=== PATIENT | female | born 1940 | race Caucasian/White ===

== ENCOUNTER 2017-02-28 22:09 | Inpatient (IN) | payer MEDICARE, MEDICAID ==
[~2017-02-28] VITALS: Ht 157.5 cm; Wt 70.7 kg
[~2017-02-28 22:09] MED LIST: ACET325T14 PO; ALBU2.5V NPPB; ALBU8.5H8 IH; ALPR0.254 PO; AMIO200T42 PO; AMLO10TA2 PO; APIX5TAB PO; ASPI-496 PO; ASPI325T17 PO; BUME0.5T PO; BUME1TAB21 PO; CLON0.3T47 PO; DIGO125T PO; DIGO250T PO; DOCU-131 PO; DOXY100T PO; FENO145T32 PO; FLUT16SP NAS; FLUT1BLS INH; GUAI5SYR PO; INSU100I18 SQ-INSULIN; INSU100I28 SQ-INSULIN; INSU100V12 SQ; INSU100V13 SQ; LISI40TA PO; LOPE1LIQ6 PO; LOSA50TA2 PO; METF500T4 PO; METO2.5T PO; METO25TA91 PO; MULT-6 PO; OMEP-110 PO; POTA20TA14 PO; PRED5TAB PO
[2017-02-28] MEDS ORDERED: VANCOMYCIN PER PHARMACY IV ONE (22:30)
[2017-02-28 22:39] LABS: BASOPHILS # (AUTO) 0.01 x10^3/uL (0-0.1); BASOPHILS % (AUTO) 0 % (0-1); EOSINOPHILS # (AUTO) 0.14 x10^3/uL (0-0.4); EOSINOPHILS % (AUTO) 2 % (1-7); LYMPHOCYTES # (AUTO) 2.47 x10^3/uL (1-3.4); LYMPHOCYTES % (AUTO) 35 % (22-44); MD NO; MEAN CORPUSCULAR HEMOGLOBIN 29.7 pg (27.0-34.8); MEAN CORPUSCULAR HGB CONC 33.9 g/dL (32.4-35.8); MEAN CORPUSCULAR VOLUME 87.4 fL (80-100); MEAN PLATELET VOLUME 7.2 fL (7.4-10.4); MONOCYTES # (AUTO) 0.65 x10^3/uL (0.2-0.8); MONOCYTES % (AUTO) 9 % (2-9); NEUTROPHILS # (AUTO) 3.75 x10^3/uL (1.8-6.8); NEUTROPHILS % (AUTO) 53 % (42-75); PLATELET COUNT 337 x10^3/uL (130-400); RED BLOOD COUNT 3.91 x10^6/uL (3.82-5.3); RED CELL DISTRIBUTION WIDTH 15.1 % (9.6-15.2)
[2017-02-28 22:51] LABS: ALANINE AMINOTRANSFERASE 25 U/L (12-78); ALBUMIN 2.8 g/dL (3.4-5.0); ANION GAP 10 mmol/L (5-15); CALCIUM 8.1 mg/dL (8.5-10.1); CHLORIDE 103 mmol/L (98-107); CREATININE 0.83 mg/dL (0.55-1.02)
[2017-02-28 22:52] LABS: RAPID INFLUENZA A POSITIVE (Negative); RAPID INFLUENZA B Negative (Negative)
[2017-02-28 22:54] LABS: ALKALINE PHOSPHATASE 33 U/L (45-117); BILIRUBIN,TOTAL 0.3 mg/dL (0.2-1.0); TOTAL PROTEIN 6.8 g/dL (6.4-8.2)
[2017-02-28] MEDS ORDERED: VANCOMYCIN 1,400 MG in SODIUM CHLORIDE 0.9% 250 ML IV ONE (23:00)
[2017-02-28] MEDS ORDERED: OSELTAMIVIR 75 MG CAPSULE PO ONE (23:30)
[2017-02-28] MEDS ORDERED: SODIUM CHLORIDE 0.9% 1,000 ML IV ONE (23:57)
[2017-03-01] MEDS ORDERED: VANCOMYCIN PER PHARMACY IV ONE
[2017-03-01 01:56] VITALS: BP 108/77
[2017-03-01 02:00] VITALS: BP 108/77
[2017-03-01] MEDS ORDERED: ACETAMINOPHEN 325 MG TABLET ONE (03:54)
[2017-03-01] MEDS ORDERED: ACETAMINOPHEN 325 MG TABLET PO ONE (04:00)
[2017-03-01 06:45] VITALS: BP 149/78
[2017-03-01] MEDS: INSULIN ASPART 100 UNITS/ML, PEN SQ-INSULIN SCH ×3 (09:54→21:17)
[2017-03-01] MEDS ORDERED: DOCUSATE 100 MG CAPSULE PO PRN (11:00)
[2017-03-01] MEDS: APIXABAN 5 MG TABLET PO SCH ×2 (11:00→21:14)
[2017-03-01] MEDS ORDERED: ONDANSETRON ODT 4 MG PO PRN (11:00)
[2017-03-01] MEDS ORDERED: PHARMACOKINETIC MONITORING MC PRN (11:00)
[2017-03-01] MEDS ORDERED: VANCOMYCIN PER PHARMACY MC PRN (11:00)
[2017-03-01] MEDS ORDERED: PHARMACOKINETIC CONSULTATION MC ONE (11:00)
[2017-03-01] MEDS ORDERED: ONDANSETRON 2MG/ML, 2ML IVPush PRN ×2 (11:00)
[2017-03-01] MEDS: DIGOXIN 0.125 MG TABLET PO SCH (11:25)
[2017-03-01] MEDS: FUROSEMIDE 40 MG TABLET PO SCH (11:25)
[2017-03-01] MEDS: CEFTRIAXONE PMX 1GM/50ML 50 ML IV SCH (11:26)
[2017-03-01] MEDS: OSELTAMIVIR 75 MG CAPSULE PO SCH ×2 (11:26→21:15)
[2017-03-01] MEDS: METOPROLOL SUCCINATE 25 MG TAB.ER.24H PO SCH (11:26)
[2017-03-01 12:05] LABS: HEMOGLOBIN A1C 11.2 % (4.2-6.3)
[2017-03-01] MEDS: INSULIN DETEMIR 100 UNITS/ML, PEN SQ-INSULIN SCH ×2 (12:22→21:17)
[2017-03-01] MEDS: VANCOMYCIN 1,200 MG in SODIUM CHLORIDE 0.9% 250 ML IV SCH (12:22)
[2017-03-01 12:34] LABS: THYROID STIMULATING HORMONE 1.31 mIU/L (0.358-3.740)
[2017-03-01 12:55] VITALS: BP 140/89
[2017-03-01] MEDS ORDERED: ALBUTEROL/IPRATROPIUM 2.5MG/0.5MG, 3 ML NPPB PRN (14:00)
[2017-03-01] MEDS: ACETAMINOPHEN 325 MG TABLET PO PRN ×2 (16:15→21:15)
[2017-03-01] MEDS ORDERED: INSU100V13 SQ (17:46)
[2017-03-01] MEDS ORDERED: DIGO125T PO (17:51)
[2017-03-01] MEDS ORDERED: INSU100I17 SQ (17:51)
[2017-03-01] MEDS ORDERED: FURO40TA6 PO (17:53)
[2017-03-01] MEDS ORDERED: APIX5TAB PO (17:53)
[2017-03-01] MEDS: ALBUTEROL/IPRATROPIUM 2.5MG/0.5MG, 3 ML NPPB SCH (20:00)
[2017-03-01 20:53] VITALS: BP 94/61
[2017-03-02 02:00] VITALS: BP 110/79
[2017-03-02] MEDS: METOPROLOL SUCCINATE 25 MG TAB.ER.24H PO SCH (05:48)
[2017-03-02] MEDS: ACETAMINOPHEN 325 MG TABLET PO PRN ×3 (06:00→20:51)
[2017-03-02 06:43] LABS: BASOPHILS # (AUTO) 0.03 x10^3/uL (0-0.1); BASOPHILS % (AUTO) 1 % (0-1); EOSINOPHILS # (AUTO) 0.19 x10^3/uL (0-0.4); EOSINOPHILS % (AUTO) 4 % (1-7); LYMPHOCYTES # (AUTO) 1.74 x10^3/uL (1-3.4); LYMPHOCYTES % (AUTO) 33 % (22-44); MD NO; MEAN CORPUSCULAR HEMOGLOBIN 29.9 pg (27.0-34.8); MEAN CORPUSCULAR HGB CONC 33.8 g/dL (32.4-35.8); MEAN CORPUSCULAR VOLUME 88.4 fL (80-100); MEAN PLATELET VOLUME 7.5 fL (7.4-10.4); MONOCYTES # (AUTO) 0.52 x10^3/uL (0.2-0.8); MONOCYTES % (AUTO) 10 % (2-9); NEUTROPHILS # (AUTO) 2.82 x10^3/uL (1.8-6.8); NEUTROPHILS % (AUTO) 53 % (42-75); PLATELET COUNT 310 x10^3/uL (130-400); RED CELL DISTRIBUTION WIDTH 15.3 % (9.6-15.2)
[2017-03-02 06:50] LABS: ALANINE AMINOTRANSFERASE 22 U/L (12-78); ALBUMIN 2.8 g/dL (3.4-5.0); ANION GAP 10 mmol/L (5-15); CALCIUM 8.5 mg/dL (8.5-10.1); CHLORIDE 101 mmol/L (98-107); CREATININE 0.65 mg/dL (0.55-1.02)
[2017-03-02 06:52] LABS: ALKALINE PHOSPHATASE 33 U/L (45-117); BILIRUBIN,TOTAL 0.3 mg/dL (0.2-1.0); TOTAL PROTEIN 6.6 g/dL (6.4-8.2)
[2017-03-02] MEDS: ALBUTEROL/IPRATROPIUM 2.5MG/0.5MG, 3 ML NPPB SCH ×4 (07:09→19:24)
[2017-03-02] MEDS: FUROSEMIDE 40 MG TABLET PO SCH (08:53)
[2017-03-02] MEDS: APIXABAN 5 MG TABLET PO SCH ×2 (08:53→20:51)
[2017-03-02] MEDS: OSELTAMIVIR 75 MG CAPSULE PO SCH ×2 (08:53→20:51)
[2017-03-02] MEDS: DIGOXIN 0.125 MG TABLET PO SCH (08:53)
[2017-03-02] MEDS: INSULIN ASPART 100 UNITS/ML, PEN SQ-INSULIN SCH ×4 (08:54→20:52)
[2017-03-02 09:43] VITALS: BP 105/67
[2017-03-02 12:05] VITALS: BP 102/68
[2017-03-02] MEDS: CEFTRIAXONE PMX 1GM/50ML 50 ML IV SCH (12:06)
[2017-03-02] MEDS: INSULIN DETEMIR 100 UNITS/ML, PEN SQ-INSULIN SCH ×2 (12:07→20:51)
[2017-03-02] MEDS ORDERED: DILTIAZEM 125 MG in SODIUM CHLORIDE 0.9% 100 ML IV SCH (12:30)
[2017-03-02] MEDS ORDERED: MAGNESIUM SULFATE PMX 2GM/50ML 50 ML IV ONE (12:30)
[2017-03-02] MEDS: VANCOMYCIN 1,200 MG in SODIUM CHLORIDE 0.9% 250 ML IV SCH (13:13)
[2017-03-02 19:11] VITALS: BP 105/58
[2017-03-03 01:51] VITALS: BP 107/69
[2017-03-03] MEDS: ACETAMINOPHEN 325 MG TABLET PO PRN ×2 (05:30→16:39)
[2017-03-03] MEDS: METOPROLOL SUCCINATE 25 MG TAB.ER.24H PO SCH (05:30)
[2017-03-03 06:12] LABS: ALBUMIN 3.1 g/dL (3.4-5.0); ANION GAP 10 mmol/L (5-15); CALCIUM 8.5 mg/dL (8.5-10.1); CHLORIDE 100 mmol/L (98-107)
[2017-03-03 06:16] LABS: ALANINE AMINOTRANSFERASE 22 U/L (12-78); ALKALINE PHOSPHATASE 32 U/L (45-117); BILIRUBIN,TOTAL 0.5 mg/dL (0.2-1.0); CREATININE 0.64 mg/dL (0.55-1.02); TOTAL PROTEIN 7.1 g/dL (6.4-8.2)
[2017-03-03 06:21] LABS: BASOPHILS # (AUTO) 0.04 x10^3/uL (0-0.1); BASOPHILS % (AUTO) 1 % (0-1); EOSINOPHILS # (AUTO) 0.21 x10^3/uL (0-0.4); EOSINOPHILS % (AUTO) 4 % (1-7); LYMPHOCYTES # (AUTO) 1.77 x10^3/uL (1-3.4); LYMPHOCYTES % (AUTO) 29 % (22-44); MD NO; MEAN CORPUSCULAR HEMOGLOBIN 29.9 pg (27.0-34.8); MEAN CORPUSCULAR HGB CONC 33.9 g/dL (32.4-35.8); MEAN CORPUSCULAR VOLUME 88.1 fL (80-100); MEAN PLATELET VOLUME 7.4 fL (7.4-10.4); MONOCYTES # (AUTO) 0.55 x10^3/uL (0.2-0.8); MONOCYTES % (AUTO) 9 % (2-9); NEUTROPHILS # (AUTO) 3.61 x10^3/uL (1.8-6.8); NEUTROPHILS % (AUTO) 58 % (42-75); PLATELET COUNT 341 x10^3/uL (130-400); RED BLOOD COUNT 3.76 x10^6/uL (3.82-5.3); RED CELL DISTRIBUTION WIDTH 15.4 % (9.6-15.2)
[2017-03-03] MEDS: ALBUTEROL/IPRATROPIUM 2.5MG/0.5MG, 3 ML NPPB SCH (06:57)
[2017-03-03 07:32] VITALS: BP 93/62
[2017-03-03] MEDS: FUROSEMIDE 40 MG TABLET PO SCH (08:18)
[2017-03-03] MEDS: APIXABAN 5 MG TABLET PO SCH ×2 (08:18→22:41)
[2017-03-03] MEDS: DIGOXIN 0.125 MG TABLET PO SCH (08:18)
[2017-03-03] MEDS: OSELTAMIVIR 75 MG CAPSULE PO SCH ×2 (08:18→22:40)
[2017-03-03] MEDS: INSULIN ASPART 100 UNITS/ML, PEN SQ-INSULIN SCH ×4 (08:18→22:40)
[2017-03-03] MEDS: CEFTRIAXONE PMX 1GM/50ML 50 ML IV SCH (12:03)
[2017-03-03] MEDS: INSULIN DETEMIR 100 UNITS/ML, PEN SQ-INSULIN SCH (12:25)
[2017-03-03] MEDS: VANCOMYCIN 1,200 MG in SODIUM CHLORIDE 0.9% 250 ML IV SCH (12:57)
[2017-03-03 13:07] VITALS: BP 96/55
[2017-03-03] MEDS ORDERED: HYDROCORTISONE 25 MG SUPP PR PRN (15:00)
[2017-03-03] MEDS: POTASSIUM CHLORIDE 20 MEQ TAB.ER.PRT PO SCH ×2 (17:26→22:41)
[2017-03-03 20:58] VITALS: BP 115/73
[2017-03-03] MEDS ORDERED: INSULIN DETEMIR 100 UNITS/ML, PEN SQ-INSULIN SCH (23:00)
[2017-03-04 04:18] VITALS: BP 98/64
[2017-03-04 05:44] LABS: BASOPHILS # (AUTO) 0.03 x10^3/uL (0-0.1); BASOPHILS % (AUTO) 1 % (0-1); EOSINOPHILS # (AUTO) 0.18 x10^3/uL (0-0.4); EOSINOPHILS % (AUTO) 3 % (1-7); LYMPHOCYTES # (AUTO) 1.84 x10^3/uL (1-3.4); LYMPHOCYTES % (AUTO) 34 % (22-44); MD NO; MEAN CORPUSCULAR HEMOGLOBIN 30.3 pg (27.0-34.8); MEAN CORPUSCULAR HGB CONC 34.5 g/dL (32.4-35.8); MEAN CORPUSCULAR VOLUME 87.8 fL (80-100); MEAN PLATELET VOLUME 7.3 fL (7.4-10.4); MONOCYTES # (AUTO) 0.52 x10^3/uL (0.2-0.8); MONOCYTES % (AUTO) 10 % (2-9); NEUTROPHILS # (AUTO) 2.91 x10^3/uL (1.8-6.8); NEUTROPHILS % (AUTO) 53 % (42-75); PLATELET COUNT 320 x10^3/uL (130-400); RED BLOOD COUNT 3.56 x10^6/uL (3.82-5.3); RED CELL DISTRIBUTION WIDTH 15.1 % (9.6-15.2)
[2017-03-04 05:54] LABS: ANION GAP 9 mmol/L (5-15); CALCIUM 8.7 mg/dL (8.5-10.1); CHLORIDE 103 mmol/L (98-107); CREATININE 0.49 mg/dL (0.55-1.02)
[2017-03-04 06:24] VITALS: BP 143/78
[2017-03-04] MEDS: METOPROLOL SUCCINATE 25 MG TAB.ER.24H PO SCH (06:25)
[2017-03-04 06:37] VITALS: BP 151/73
[2017-03-04] MEDS: INSULIN ASPART 100 UNITS/ML, PEN SQ-INSULIN SCH ×4 (09:29→21:58)
[2017-03-04] MEDS: APIXABAN 5 MG TABLET PO SCH ×2 (09:29→21:57)
[2017-03-04] MEDS: FUROSEMIDE 40 MG TABLET PO SCH (09:29)
[2017-03-04] MEDS: DIGOXIN 0.125 MG TABLET PO SCH (09:29)
[2017-03-04] MEDS: OSELTAMIVIR 75 MG CAPSULE PO SCH ×2 (09:29→21:57)
[2017-03-04 10:17] LABS: CLOSTRIDIUM DIFFICILE ANTIGEN NEGATIVE; CLOSTRIDIUM DIFFICILE TOXIN NEGATIVE (Negative)
[2017-03-04 11:53] VITALS: BP 143/69
[2017-03-04] MEDS: INSULIN DETEMIR 100 UNITS/ML, PEN SQ-INSULIN SCH ×2 (12:23→23:44)
[2017-03-04] MEDS: CEFTRIAXONE PMX 1GM/50ML 50 ML IV SCH (12:24)
[2017-03-04] MEDS: VANCOMYCIN 1,200 MG in SODIUM CHLORIDE 0.9% 250 ML IV SCH (13:41)
[2017-03-04] MEDS: ACETAMINOPHEN 325 MG TABLET PO PRN (16:58)
[2017-03-04 18:48] VITALS: BP 113/60
[2017-03-05 00:42] VITALS: BP 127/67
[2017-03-05 05:09] LABS: BASOPHILS # (AUTO) 0.02 x10^3/uL (0-0.1); BASOPHILS % (AUTO) 0 % (0-1); EOSINOPHILS % (AUTO) 3 % (1-7); LYMPHOCYTES # (AUTO) 1.81 x10^3/uL (1-3.4); LYMPHOCYTES % (AUTO) 30 % (22-44); MD NO; MEAN CORPUSCULAR HEMOGLOBIN 29.5 pg (27.0-34.8); MEAN CORPUSCULAR HGB CONC 33.7 g/dL (32.4-35.8); MEAN CORPUSCULAR VOLUME 87.5 fL (80-100); MEAN PLATELET VOLUME 7.4 fL (7.4-10.4); MONOCYTES # (AUTO) 0.53 x10^3/uL (0.2-0.8); MONOCYTES % (AUTO) 9 % (2-9); NEUTROPHILS # (AUTO) 3.41 x10^3/uL (1.8-6.8); NEUTROPHILS % (AUTO) 57 % (42-75); PLATELET COUNT 326 x10^3/uL (130-400); RED BLOOD COUNT 3.67 x10^6/uL (3.82-5.3); RED CELL DISTRIBUTION WIDTH 15.4 % (9.6-15.2)
[2017-03-05 05:20] LABS: CHLORIDE 102 mmol/L (98-107)
[2017-03-05 05:36] LABS: ANION GAP 10 mmol/L (5-15); CALCIUM 8.8 mg/dL (8.5-10.1); CREATININE 0.56 mg/dL (0.55-1.02)
[2017-03-05] MEDS: METOPROLOL SUCCINATE 25 MG TAB.ER.24H PO SCH (06:30)
[2017-03-05 07:01] VITALS: BP 149/73
[2017-03-05] MEDS: OSELTAMIVIR 75 MG CAPSULE PO SCH (08:28)
[2017-03-05] MEDS: INSULIN ASPART 100 UNITS/ML, PEN SQ-INSULIN SCH ×4 (08:28→21:19)
[2017-03-05] MEDS: DIGOXIN 0.125 MG TABLET PO SCH (08:29)
[2017-03-05] MEDS: FUROSEMIDE 40 MG TABLET PO SCH (08:29)
[2017-03-05] MEDS: VANCOMYCIN 1,200 MG in SODIUM CHLORIDE 0.9% 250 ML IV SCH (08:29)
[2017-03-05] MEDS: APIXABAN 5 MG TABLET PO SCH ×2 (08:29→21:19)
[2017-03-05] MEDS ORDERED: POTASSIUM CHLORIDE 20 MEQ TAB.ER.PRT PO ONE ×2 (08:30→12:30)
[2017-03-05] MEDS: CEFTRIAXONE PMX 1GM/50ML 50 ML IV SCH (12:13)
[2017-03-05] MEDS: INSULIN DETEMIR 100 UNITS/ML, PEN SQ-INSULIN SCH ×2 (12:13→22:32)
[2017-03-05 12:24] VITALS: BP 122/69
[2017-03-05 19:25] VITALS: BP 149/69
[2017-03-05] MEDS ORDERED: OSELTAMIVIR 75 MG CAPSULE PO SCH (21:00)
[2017-03-06 01:32] VITALS: BP 147/64
[2017-03-06] MEDS: VANCOMYCIN 1,200 MG in SODIUM CHLORIDE 0.9% 250 ML IV SCH ×2 (02:06→21:29)
[2017-03-06 04:31] LABS: ANION GAP 7 mmol/L (5-15); CALCIUM 9.1 mg/dL (8.5-10.1); CHLORIDE 102 mmol/L (98-107); CREATININE 0.56 mg/dL (0.55-1.02)
[2017-03-06 05:46] VITALS: BP 137/70
[2017-03-06] MEDS: METOPROLOL SUCCINATE 25 MG TAB.ER.24H PO SCH (05:47)
[2017-03-06 07:47] VITALS: BP 138/60
[2017-03-06] MEDS: FUROSEMIDE 40 MG TABLET PO SCH (08:41)
[2017-03-06] MEDS: DIGOXIN 0.125 MG TABLET PO SCH (08:42)
[2017-03-06] MEDS: APIXABAN 5 MG TABLET PO SCH ×2 (08:42→21:29)
[2017-03-06] MEDS: INSULIN ASPART 100 UNITS/ML, PEN SQ-INSULIN SCH ×4 (08:42→21:30)
[2017-03-06] MEDS: CEFTRIAXONE PMX 1GM/50ML 50 ML IV SCH (11:47)
[2017-03-06] MEDS: INSULIN DETEMIR 100 UNITS/ML, PEN SQ-INSULIN SCH ×2 (11:48→23:43)
[2017-03-06] MEDS: ACETAMINOPHEN 325 MG TABLET PO PRN (14:22)
[2017-03-06 14:23] VITALS: BP 155/74
[2017-03-06 19:26] VITALS: BP 157/63
[2017-03-06] MEDS: LOPERAMIDE 2 MG CAPSULE PO PRN (21:30)
[2017-03-07 01:39] VITALS: BP 152/69
[2017-03-07] MEDS: ACETAMINOPHEN 325 MG TABLET PO PRN (03:05)
[2017-03-07 05:12] VITALS: BP 92/61
[2017-03-07 05:14] VITALS: BP 122/67
[2017-03-07] MEDS: METOPROLOL SUCCINATE 25 MG TAB.ER.24H PO SCH (05:15)
[2017-03-07 08:15] VITALS: BP 130/72
[2017-03-07] MEDS: LOPERAMIDE 2 MG CAPSULE PO PRN (08:23)
[2017-03-07] MEDS: INSULIN ASPART 100 UNITS/ML, PEN SQ-INSULIN SCH (08:23)
[2017-03-07] MEDS: FUROSEMIDE 40 MG TABLET PO SCH (08:23)
[2017-03-07] MEDS: APIXABAN 5 MG TABLET PO SCH (08:23)
[2017-03-07] MEDS: DIGOXIN 0.125 MG TABLET PO SCH (08:23)
== END 2017-03-07 11:00 | disposition home or self-care (01) | DRG 602 ==
LOC: ED 23:59 → EDIP 03-01 00:10 → 4WST 03-01 01:32
PROVIDERS: ADMIT Surgery; ATTEND Surgery
DX: L03.119 Cellulitis of unspecified part of limb (principal); J10.08 Influenza due to other identified influenza virus with other specified pneumonia; J15.9 Unspecified bacterial pneumonia; J96.11 Chronic respiratory failure with hypoxia; E87.2 Acidosis; D68.59 Other primary thrombophilia; E11.65 Type 2 diabetes mellitus with hyperglycemia; I48.0 Paroxysmal atrial fibrillation; I50.32 Chronic diastolic (congestive) heart failure; J98.11 Atelectasis; J44.0 Chronic obstructive pulmonary disease with (acute) lower respiratory infection; E78.5 Hyperlipidemia, unspecified; T50.1X5A Adverse effect of loop [high-ceiling] diuretics, initial encounter; I48.2 Chronic atrial fibrillation; E87.6 Hypokalemia; Z66 Do not resuscitate; I25.10 Atherosclerotic heart disease of native coronary artery without angina pectoris; Z99.81 Dependence on supplemental oxygen; I25.2 Old myocardial infarction; Z80.3 Family history of malignant neoplasm of breast; Z82.5 Family history of asthma and other chronic lower respiratory diseases; Z85.3 Personal history of malignant neoplasm of breast; Z86.19 Personal history of other infectious and parasitic diseases; Z79.4 Long term (current) use of insulin; Z92.3 Personal history of irradiation; Z95.0 Presence of cardiac pacemaker; Z88.2 Allergy status to sulfonamides; Z88.5 Allergy status to narcotic agent; Z88.8 Allergy status to other drugs, medicaments and biological substances; Y92.89 Other specified places as the place of occurrence of the external cause
CPT/HCPCS: 36415; 80048; 80053; 80162; 80202; 82962; 83036; 83605; 83735; 84100; 84145; 84443; 85025; 87081; 87324; 87400; 93005; 93306; 93970; 94640; 99285; J0696; J1815; J3370; J7620; J3475; J7050